=== PATIENT | female | born 1965 | race Caucasian/White ===

== ENCOUNTER 2020-02-19 13:45 | Emergency (ER) | payer OTHER, MEDICAID ==
[~2020-02-19] VITALS: Ht 172.7 cm; Wt 106.6 kg
[2020-02-19 14:07] VITALS: Ht 172.7 cm; Wt 106.6 kg
[2020-02-19 16:58] LABS: BASOPHIL % 0.6 % (0-2); PLATELET COUNT 287 x10^3mcL (130-400)
[2020-02-19 17:07] LABS: CALCIUM 9.4 mg/dL (8.5-10.1); CARBON DIOXIDE 38.4 mmol/L (21-32); CREATININE SERUM 1.5 mg/dL (0.6-1.0); POTASSIUM SERUM 4.5 mmol/L (3.5-5.1)
[2020-02-19 17:57] VITALS: BP 104/67
== END 2020-02-19 17:57 | disposition home or self-care (01) ==
LOC: ED 13:45
PROVIDERS: Emergency Medicine
DX: J34.0 Abscess, furuncle and carbuncle of nose (principal); L73.9 Follicular disorder, unspecified; J45.909 Unspecified asthma, uncomplicated
CPT/HCPCS: J2001; J8597

== ENCOUNTER 2020-02-29 12:18 | Emergency (ER) | payer OTHER, MEDICAID ==
[~2020-02-29] VITALS: Ht 172.7 cm; Wt 106.6 kg
[2020-02-29 13:02] VITALS: Ht 172.7 cm; Wt 106.6 kg
[2020-02-29 15:48] VITALS: BP 110/77
== END 2020-02-29 15:48 | disposition home or self-care (01) ==
LOC: ED 12:18
DX: J34.0 Abscess, furuncle and carbuncle of nose (principal); M12.872 Other specific arthropathies, not elsewhere classified, left ankle and foot; J45.909 Unspecified asthma, uncomplicated
CPT/HCPCS: Q0092

== ENCOUNTER 2020-07-27 15:45 | Emergency (ER) | payer OTHER, MEDICAID ==
[~2020-07-27] VITALS: Ht 172.7 cm; Wt 109.8 kg
[2020-07-27 15:53] VITALS: Ht 172.7 cm; Wt 109.8 kg
[2020-07-27 17:16] LABS: PLATELET COUNT 267 x10^3mcL (179-408); RED CELL DISTRIBUTION WIDTH 14.5 % (12.3-17.7)
[2020-07-27 17:18] LABS: BASOPHIL % 2.5 % (0.2-1.3)
[2020-07-27 17:20] LABS: CALCIUM 9.3 mg/dL (8.5-10.1); CARBON DIOXIDE 31.1 mmol/L (21-32); CREATININE SERUM 1.7 mg/dL (0.6-1.0); POTASSIUM SERUM 3.6 mmol/L (3.5-5.1)
[2020-07-27 17:25] LABS: ALBUMIN 3.5 g/dL (3.4-5.0); BILIRUBIN TOTAL 0.26 mg/dL (0.20-1.00)
[2020-07-27 18:41] VITALS: BP 104/56
== END 2020-07-27 18:41 | disposition home or self-care (01) ==
LOC: ED 15:45
PROVIDERS: Student in an Organized Health Care Education/Training Program
DX: L03.115 Cellulitis of right lower limb (principal); J45.909 Unspecified asthma, uncomplicated; E11.9 Type 2 diabetes mellitus without complications
CPT/HCPCS: J7040